=== PATIENT | male | born 1995 | race African-American/Black ===

== ENCOUNTER 2023-01-18 08:18 | Emergency (ER) | payer MEDICAID ==
[~2023-01-18] VITALS: Ht 175.3 cm; Wt 91.0 kg
[2023-01-18 08:33] VITALS: O2SAT 100
[2023-01-18] MEDS ORDERED: METH-653 MT (08:57)
[2023-01-18] MEDS ORDERED: IBUPROFEN 600MG TABLET PO ONE (09:00)
[2023-01-18 09:44] VITALS: TEMP 97.8
[2023-01-18 09:46] VITALS: BP 132/72; PULSE 72; RESP 16
== END 2023-01-18 09:52 | disposition home or self-care (01) ==
LOC: ER 08:18
DX: M54.50 Low back pain, unspecified (principal)
CPT/HCPCS: 99282; 99283

== ENCOUNTER 2023-01-22 08:31 | Emergency (ER) | payer MEDICAID ==
[~2023-01-22] VITALS: Ht 167.6 cm; Wt 86.2 kg
[~2023-01-22 08:31] MED LIST: METH-653 MT
[2023-01-22 08:35] VITALS: BP 136/72; PULSE 56; RESP 16; TEMP 98.2; O2SAT 100
[2023-01-22] MEDS ORDERED: KETOROLAC 30MG/ML VIAL IM ONE (09:00)
[2023-01-22] MEDS ORDERED: IBUP-2029 MT (09:15)
== END 2023-01-22 09:47 | disposition home or self-care (01) ==
LOC: ER 08:31
DX: Z00.00 Encounter for general adult medical examination without abnormal findings (principal); M54.9 Dorsalgia, unspecified
CPT/HCPCS: 99282; J1885

== ENCOUNTER 2023-04-04 07:45 | Emergency (ER) | payer SELFPAY ==
[~2023-04-04] VITALS: Ht 172.7 cm; Wt 87.1 kg
[~2023-04-04 07:45] MED LIST changes: +IBUP-2029 MT
[2023-04-04 08:11] VITALS: O2SAT 100
[2023-04-04] MEDS: ACETAMINOPHEN 325MG TABLET PO ONE (09:15)
[2023-04-04] MEDS: KETOROLAC 60MG/2ML VIAL IM ONE (09:15)
[2023-04-04 10:25] LABS: CLARITY URINE CLEAR (CLEAR); COLOR URINE YELLOW (YELLOW); GLUCOSE URINE NEGATIVE (NEGATIVE); KETONES URINE TRACE (NEGATIVE); LEUKOCYTE ESTERASE URINE NEGATIVE (NEGATIVE); NITRITE URINE NEGATIVE (NEGATIVE); OCCULT BLOOD URINE NEGATIVE (NEGATIVE); PROTEIN URINE NEGATIVE (NEGATIVE); SPECIFIC GRAVITY URINE 1.018 (1.005-1.030)
[2023-04-04] MEDS ORDERED: IBUP-1525 MT (10:48)
[2023-04-04] MEDS ORDERED: TOPUD MT (10:48)
[2023-04-04] MEDS ORDERED: METH-653 MT (10:48)
[2023-04-04 11:06] VITALS: BP 128/66; PULSE 55; RESP 18; TEMP 98.4
== END 2023-04-04 11:25 | disposition home or self-care (01) ==
LOC: ER 07:45
DX: M54.50 Low back pain, unspecified (principal)
CPT/HCPCS: 81003; 99283; Z7610 ×2; J1885